=== PATIENT | female | born 1945 | race Caucasian/White ===

== ENCOUNTER 2020-12-14 08:51 | Outpatient (CLI) | payer MEDICARE | END 2020-12-14 08:52 | disposition home or self-care (01) | LOC: CSHWCC 08:51 | PROVIDERS: ATTEND Nurse Practitioner Family | DX: T24.33 Burn of third degree of lower leg (principal); S71.101D Unspecified open wound, right thigh, subsequent encounter; E03.9 Hypothyroidism, unspecified; G89.11 Acute pain due to trauma | CPT/HCPCS: 99203; G0463 ==